=== PATIENT | female | born 1960 | race Caucasian/White ===

== ENCOUNTER 2016-11-19 13:47 | Emergency (ER) | payer OTHER ==
[~2016-11-19] VITALS: Ht 162.6 cm; Wt 65.9 kg
[~2016-11-19 13:47] MED LIST: LORA0.5T PO; fluoxetine PO
--- NOTE | 2016-11-19 14:45 | ED.REPORT ---
HPI-Psychiatric Illness Date of Service Nov 19, 2016 ED Provider: Clemente Smith MD The patient is a 56 year old female with a history of PTSD, major depressive disorder, anxiety, and alcoholism who presents to the ED via EMS with suicidal ideation that began one week ago. Patient was sent to the ED after expressing suicidal thoughts at work this afternoon. She reports that she has had vague suicidal thoughts in the past but denies any active suicidal ideation at this time. Patient states that she currently has a very stressful living situation and is planning to move out and live with her new significant other in the next week. Current medication list includes Celexa and buspar. Nursing Notes Stated Complaint: SUICIDAL IDEATIONS Chief Complaint: Psychiatric Complaint Nursing Notes Reviewed: Yes Allergies: Coded Allergies: hydrocodone (Verified Allergy, Unknown, 08/28/14) Scheduled ([fluoxetine]) 40 MG PO DAILY Scheduled PRN Lorazepam (Lorazepam) 0.5 Mg Tablet 0.5 MG PO Q6 PRN PRN alcohol withdrawal General Time Seen by MD: 14:44 Chief Complaint Suicidal ideation Hx Obtained From: Patient Arrived By: Walk-in Onset Occurred: 1 week ago Symptom Duration: Since onset Progression Since Onset: Unchanged Associated with: Reports: Anxiety, Depression Pertinent Negative: Pt denies other symptoms Recent Healthcare: No recent doctor visit, No recent hospitalization Risk-Psychiatric Illness Suicide Risk Stratification RF Statements: Risk factors reviewed Past Medical History Past Medical History Alcoholism Major Depressive Disorder PTSD Chronic back pain Past Surgical History Pneumothorax surgery x3 Reports: Appendectomy, , Hysterectomy Family History Noncontributory Smoking History Current Every Day Smoker Social History Alcohol Use: >5 per day Drug Use: Denies drug use Other Social History: Local resident Ambulatory Status Independent Review of Systems Psychiatric: Reports: Anxiety, Depression, Stress, Suicidal ideation, Denies: Homicidal ideation Complete sys rev & neg: except as marked. Physical Exam Initial Vital Signs Vital Signs (First) Date Time Temp Pulse Resp B/P Pulse Ox O2 Delivery O2 Flow Rate FiO2 11/19/16 15:14 90 19 97/62 93 Room Air 11/19/16 19:32 37.5 Initial VS: Reviewed Head / Eyes: Atraumatic, Normocephalic, PERRL Neck: Supple, Non-tender, Full range of motion Extremities: Vascular intact, Neuro intact, No swelling, No tenderness Skin: Warm, Dry, No cyanosis General/Constitutional: Awake, Alert, No acute distress Neurologic: Oriented X3, Speech NL, No motor deficits, No sensory deficits, CN II - XII intact Psychiatric: Not homicidal Abnormal Mood/Affect: Positive: Anxious Vague occasional suicidal ideation on occasion but no current SI Respiratory / Chest: Atraumatic, Breath sounds NL, Breath sounds = bilat, No respiratory distress Cardiovascular: Heart rate NL, Regular rhythm, Heart sounds NL, No gallop, No murmurs, No rubs Interpretation & Diagnostics Lab Results Interpretation Result Diagram: 11/19/16 1533 11/19/16 1533 Test 11/19/16 14:35 11/19/16 15:33 11/19/16 15:34 Hold Urine Received (Received) White Blood Count 12.5th/mm3 (3.8-10.1) Red Blood Count 4.62mil/mm3 (3.90-5.20) Hemoglobin 14.1g/dL (12.0-15.6) Hematocrit 40.7% (35.0-46.0) Mean Corpuscular Volume 88.1fL (81-100) Mean Corpuscular Hemoglobin 30.5pg (27.0-35.0) Mean Corpuscular Hemoglobin Concent 34.6% (32.0-37.0) Red Cell Distribution Width 12.9% (12.3-15.4) Platelet Count 307bil/L (150-400) Neutrophils (%) (Auto) 52.2% (40-74) Lymphocytes (%) (Auto) 40.6% (14-46) Monocytes (%) (Auto) 5.6% (4-12) Eosinophils (%) (Auto) 1.0% (0-5) Basophils (%) (Auto) 0.3% (0-3) Sodium Level 145mEq/L (134-144) Potassium Level 3.6mEq/L (3.5-5.2) Chloride Level 104mEq/L (97-108) Carbon Dioxide Level 18mmol/L (18-29) Blood Urea Nitrogen 17mg/dL (6-24) Creatinine 0.54mg/dL (0.57-1.00) Estimat Glomerular Filtration Rate 166mL/min (>59) Glucose Level 102mg/dL (60-99) Calcium Level 8.5mg/dL (8.5-10.1) Total Bilirubin 0.2mg/dL (0.0-1.2) Aspartate Amino Transf (AST/SGOT) 27U/L (0-50) Alanine Aminotransferase (ALT/SGPT) 20U/L (0-32) Alkaline Phosphatase 92U/L (25-150) Total Protein 7.6g/dL (6.4-8.4) Albumin 4.4g/dL (3.4-5.0) Thyroid Stimulating Hormone (TSH) 0.596uIU/mL (0.450-4.500) Hold Raman Top Tube Received (Received) General Lab Results Interp 2: Alcohol level elevated Re-Eval/Medical Decision Med Decision/Clinical Course The patient is a 56 year old female with a history of PTSD, major depressive disorder, anxiety, and alcoholism who presents to the ED via EMS with vague suicidal ideation that began one week ago. Patient was sent to the ED after expressing suicidal thoughts at work this afternoon. She reports that she has had vague suicidal thoughts in the past but denies any active suicidal ideation at this time. Patient states that she currently has a very stressful living situation and is planning to move out and live with her new significant other in the next week. Current medication list includes Celexa and buspar. Here in the emergency department the patient is afebrile stable vital signs and examination as above. She is noted to have a positive breathalyzer though does not clinically appear to be intoxicated. Laboratory studies notable as below: Urine drug screen negative CBC notable for borderline leukocytosis CMP notable for mild hypernatremia TSH within normal limits At this time, patient denies any suicidal ideation. She reports multiple stressors, mostly related to her current living situation but states that she has no intent or plan to harm herself. She does not desire to be admitted to the hospital. She is not holdable from a medical or psychiatric perspective. She remained in the emergency department and we will perform serial breathalyzers until they were >0.08. The patient was seen and evaluated by our emergency department social work coordinator and provided with outpatient resources. She continues to adamantly deny any suicidal ideation or plan. She is linear/ organizing requests to be discharged. At this time, both myself and emergency department social work coordinator feel that she is appropriate for outpatient management and resources are in place. Prior to discharge follow-up and return precautions were reviewed in detail with the patient who verbalized understanding and agreement with the plan. The patient was discharged in stable condition. Re-Evaluation/Progress : Time of Eval: 19:45 Patient Status: Condition improved Re-Evaluation/Progress Note: The patient's symptoms have improved upon recheck and she agrees to follow up with the resources given by DERMATOLOGY PROCEDURAL PHYSICIAN. All questions are addressed. Counseled Regarding: Diagnosis, Lab results, Need for follow-up, When/why to return to ED Discharge & Departure Impression: Primary Impression: Alcohol intoxication Complication of substance-induced condition: uncomplicated Qualified Code: F10.120 - Alcohol abuse with intoxication, uncomplicated Additional Impressions: Depressed Depression Type: unspecified Qualified Code: F32.9 - Major depressive disorder, single episode, unspecified Suicidal ideation Acute situational disturbance )( Condition at Discharge: No danger to self, No danger to others, No suicidal ideation, No homicidal ideation Disposition: Home Discharge Condition All VS Reviewed: Yes Condition: Stable Patient Instructions: Suicide Prevention for Adults (ED) Additional Instructions: Thank you for seeking care at emergency room. You were seen for alcohol intoxication and making some suicidal statements. You were seen and evaluated by our emergency department social work coordinator. Please follow-up with the resources and plan that was provided. You should follow-up with your primary doctor and psychiatrist in the next week. You should return to the ED immediately if you develop any thoughts of harming herself/others, if you feel that you are having a medical or psychiatric emergency, if you develop fevers, vomiting, cough, shortness of breath, chest pain, lightheadedness, weakness or any other concerning signs or symptoms. Thank you for letting us partake in your care today. Referrals: [facility] (PCP) [facility] Scribe Attestation Portions of this note were transcribed by Carla Wilson. I, Dr. Smith personally performed the history, physical exam and medical decision-making; I reviewed and confirmed the accuracy of the information in the transcribed note. Clemente Smith MD Nov 19, 2016 14:45 CARLA WILSON Nov 19, 2016 15:58
[2016-11-19 15:14] VITALS: BP 97/62; PULSE 90; RESP 19; O2SAT 93
[2016-11-19 15:36] LABS: BASOPHILS % (AUTO) 0.3 % (0-3); MONOCYTES % (AUTO) 5.6 % (4-12); Mean Corpuscular Hemoglobin 30.5 pg (27.0-35.0); Mean Corpuscular Volume 88.1 fL (81-100); NEUTROPHILS % (AUTO) 52.2 % (40-74); Platelet Count 307 bil/L (150-400)
[2016-11-19 19:32] VITALS: BP 128/73; PULSE 90; RESP 18; O2SAT 97
[2016-11-19 19:59] VITALS: BP 128/73; PULSE 90; RESP 18; O2SAT 97
== END 2016-11-19 20:00 | disposition home or self-care (01) ==
LOC: EDBD 13:47 → SED 13:47 → EDUNIT# 13:47 → SED 20:00
DX: F10.229 Alcohol dependence with intoxication, unspecified (principal); F32.9 Major depressive disorder, single episode, unspecified; R45.851 Suicidal ideations; F43.0 Acute stress reaction; F43.10 Post-traumatic stress disorder, unspecified; F41.9 Anxiety disorder, unspecified; J44.9 Chronic obstructive pulmonary disease, unspecified; Z87.09 Personal history of other diseases of the respiratory system; Z88.5 Allergy status to narcotic agent